=== PATIENT | female | born 1990 | race Caucasian/White ===

== ENCOUNTER → 2021-03-19 17:17 | Outpatient (CLI) | payer OTHER, SELFPAY ==
[2021-03-19 17:55] LABS: Appearance Urine UA CLEAR; Bilirubin Urine UA NEGATIVE (NEGATIVE); Color Urine UA YELLOW; Glucose Urine UA NEGATIVE (Negative); Ketones Urine UA NEGATIVE (NEGATIVE); Leukocyte Esterase Urine UA NEGATIVE (NEGATIVE); Nitrite Urine UA NEGATIVE (Negative); Occult Blood Urine UA 1+ (Negative); Protein Urine UA NEGATIVE (Negative); Specific Gravity Urine UA 1.015 (1.000-1.035); Urobilinogen Urine UA 0.2 E.U./dL (0.2)
[2021-03-19 18:02] LABS: Bacteria Urine None Seen; RBC Urine 0-1/HPF (0-5/HPF); Squamous Epithelial Cell Urine 0-1 /HPF (0-5/HPF); WBC Urine None Seen (0-5/HPF)
[2021-03-19 18:28] LABS: Add Manual Diff / Slide Review NO; Basophils Absolute Auto 0 /uL (0-100); Basophils Percent Auto 0.4 % (0-2); Eosinophils Absolute Auto 100 /uL (0-450); Eosinophils Percent Auto 1.3 % (2-4); Hematocrit 38.5 % (36-46); Hemoglobin 13.1 g/dL (12.0-16.0); Lymphocytes Absolute Auto 1600 /uL (1100-4500); Lymphocytes Percent Auto 17.3 % (25-40); Mean Corpuscular Hemoglobin 31.3 PG (26-34); Mean Corpuscular Volume 92.1 fL (80-100); Monocytes Absolute Auto 400 /uL (0-900); Monocytes Percent Auto 4.2 % (3-14); Neutrophils Absolute Auto 7100 /uL (1500-7000); Neutrophils Percent Auto 76.8 % (50-75); Platelet Count 261 X10^3/uL (150-400); Red Blood Cell Count 4.18 X10^6/uL (4.0-5.2); Red Cell Distribution Width 13.8 % (11.6-14.8); White Blood Cell Count 9.2 X10^3/uL (4.5-11.0)
[2021-03-20 08:09] LABS: RPR Screen Non Reactive (Non Reactive)
[2021-03-20 11:22] LABS: Varicella IgG Antibody 310 index (Immune >165)
[2021-03-20 17:04] LABS: Hepatitis B Surface Antigen NEGATIVE s/c (NEGATIVE); Rubella Antibody IgG 39.5 IU/mL (>15)
[2021-03-20 17:17] LABS: HIV 1 & 2 Ab/Ag 4th Gen Combo NEGATIVE (NEGATIVE); Hep C Virus Ab w/Reflex Quant NEGATIVE s/c (NEGATIVE)
== END ==
PROVIDERS: Referring Provider Specialist; Visit Provider Specialist
DX: Z34.81 Encounter for supervision of other normal pregnancy, first trimester (principal)
CPT/HCPCS: 36415; 80055; 81003; 81015; 86787; 86803; 86850; 86900; 86901; 87086; 87389

== ENCOUNTER → 2021-05-28 10:53 | Outpatient (CLI) | payer OTHER, SELFPAY ==
[2021-05-30 18:22] LABS: AFP, Serum 52.4 ng/mL (.); Inhibin A, Dimeric 138.05 pg/mL (.); Inhibin A, MoM 0.89 (.); Maternal Ethnicity Caucasian (.); Maternal Weight 166 lbs (.); Number of Fetuses No (.); OSBR Risk 1 IN 9231 (.); Results Report (.); Test Results *Screen Negative* (.); hCG, MoM 0.35 (.); hCG, Serum 8299 mIU/mL (.)
== END ==
PROVIDERS: Referring Provider Specialist; Visit Provider Specialist
DX: Z34.82 Encounter for supervision of other normal pregnancy, second trimester (principal); Z3A.19 19 weeks gestation of pregnancy
CPT/HCPCS: 82105; 82677; 84702; 86336

== ENCOUNTER → 2021-06-09 15:44 | Outpatient (CLI) | payer OTHER, SELFPAY ==
--- NOTE | 2021-06-09 15:45 | DI.US.S_ITS ---
PROCEDURE: US OB >= 14 WEEKS FETUS INDICATIONS: 20 WEEK ANATOMY OUTSIDE/PRIOR DATING DATA: Last menstrual period (LMP): 01/07/2021. LMP-based estimated date of delivery (CHICO): 10/22/2021 . First dating scan (date and location): 06/09/2021 . Estimated date of delivery (CHICO) from first dating scan: 09/28/2021 . TECHNIQUE: Real-time scanning was performed of the fetus, with image documentation and biometric measurements. Endovaginal scanning: No COMPARISON: [facility], , OB >= 14 WEEKS FETUS, 05/28/2021, 10:47. FINDINGS: General: A single living intrauterine gestation is present. Presentation: Variable. Placenta: Placental position is posterior , without previa. Amniotic fluid index: 14 cm, normal range is 5-24 cm. heart rate: 139 beats per minute. Maternal cervical canal: 4.6 cm long. Normal lower limit is 2.5 cm. biometrics: Biparietal diameter: 22 weeks Head circumference: 21 weeks 1 day Abdominal circumference: 20 weeks 5 days Femur length: 21 weeks 2 days Estimated gestational age from initial scan: not applicable. Composite gestational age from present scan: 21 weeks 2 days Estimated weight and percentile: 394 g Measurement variability for biometric dating: +/- 7 days from 14 weeks to 15 weeks 6 days gestation, +/- 10 days from 16 weeks to 21 weeks 6 days gestation, +/- 2 weeks from 22 weeks to 27 weeks 6 days gestation, +/- 3 weeks for 28 weeks gestation or later. weight reference: 4500 g or EFW >90/95% is considered macrosomia or large for gestational age. EFW <10% is small for gestational age. EFW 5% or less is considered intra-uterine growth restriction. Anatomic survey: Neuro: Ventricles are non-dilated at less than 10 mm. Cisterna magna is normal at 3-11 mm. Cerebellum is normal in size and morphology. Nuchal skin fold: Normal at less than 6 mm between 14-21 weeks gestational age. Face: Nose and lips, facial profile are normal. Spine: No evidence for spina bifida. Heart: 4-chambered heart is present, with normal ventricular outflow tracts. Diaphragm: Diaphragm is intact. Stomach: Left-sided stomach is present. Ill-defined echogenic focus present within the mid abdomen at the level of the stomach measuring 11 mm of unclear etiology. Kidneys: No hydronephrosis. Normal is less than 5 mm in 2nd trimester, less than 7 mm in 3rd trimester. Cord: 3-vessel cord has orthotopic insertion. Bladder: Normal in size. Extremities: All 4 extremities identified. IMPRESSION: 1. 21 week 2 day single living IUP corresponding to ultrasound CHICO of 10/18/2021. 2. Echogenic focus within the mid abdomen of unclear etiology; otherwise normal anatomic survey. Recommend short-term follow-up ultrasound in 2-3 weeks to assess for interval changes. Dictated by: Willian EDMONDSON Interpreted: Sierra Hartmann MD on 06/09/2021 at 17:01 Transcribed by: JORDAN on 06/09/2021 at 17:05 Approved by: Sierra Hartmann M.D. on 06/09/2021 at 18:03
== END ==
PROVIDERS: Referring Provider Specialist; Visit Provider Specialist
DX: Z34.82 Encounter for supervision of other normal pregnancy, second trimester (principal); Z3A.20 20 weeks gestation of pregnancy
CPT/HCPCS: 76811

== ENCOUNTER → 2021-06-25 15:42 | Outpatient (CLI) | payer OTHER, SELFPAY ==
[2021-07-01 16:29] LABS: CF Result Comment: (.)
== END ==
PROVIDERS: Referring Provider Specialist; Visit Provider Specialist
DX: Z34.82 Encounter for supervision of other normal pregnancy, second trimester (principal); Z3A.23 23 weeks gestation of pregnancy
CPT/HCPCS: 36415; 81223

== ENCOUNTER → 2021-07-12 10:12 | Outpatient (CLI) | payer OTHER, SELFPAY ==
[2021-07-12 11:52] LABS: Hematocrit 33.5 % (36-46); Hemoglobin 11.4 g/dL (12.0-16.0)
[2021-07-12 12:07] LABS: GTT (PREG) 1 Hour PP 50gm Dose 91 mg/dL (76-139)
[2021-07-13 11:08] LABS: HSV 2 IGG AB < 0.91 index (0.00-0.90); Toxoplasma gohndii IgG <3.0 IU/mL (0.0-7.1); Toxoplasma gondii IgM <3.0 AU/mL (0.0-7.9)
[2021-07-14 15:36] LABS: CMV DNA, Quant Real Time PCR Negative (Negative)
== END ==
PROVIDERS: Referring Provider Specialist; Visit Provider Specialist
DX: O35.9XX0 Maternal care for (suspected) fetal abnormality and damage, unspecified, not applicable or unspecified (principal); Z34.82 Encounter for supervision of other normal pregnancy, second trimester; Z3A.25 25 weeks gestation of pregnancy
CPT/HCPCS: 36415; 82950; 85014; 85018; 86695; 86696; 86777; 86778; 87497

== ENCOUNTER → 2021-10-02 10:31 | Outpatient (CLI) | payer OTHER, SELFPAY ==
[2021-10-03 10:37] LABS: Strep Grp B PCR NEG for Grp B Strep
== END ==
PROVIDERS: PCP Specialist; Referring Provider Specialist; Visit Provider Specialist
DX: Z34.83 Encounter for supervision of other normal pregnancy, third trimester (principal); Z3A.37 37 weeks gestation of pregnancy
CPT/HCPCS: 87653

== ENCOUNTER 2021-10-10 09:36 | Inpatient (IN) | payer OTHER, SELFPAY ==
--- NOTE | 2021-10-10 10:07 | P.HPOB_ITS ---
OB HPI Date/Time Date of admission: 10/10/21 Date Patient Seen: 10/10/21 Time Patient Seen: 10:08 History of Present Condition Chief complaint: OBSERVING PT, POSSIBLY IN LABOR : 2 Para: 1 Estimated Date of Delivery: 10/22/21 Estimated Gestational Age (weeks): 38 Narrative: Anna Samano is a 30 year old female admitted in active labor History of Present care: good care, initiated at week # (9), number of visits (11) and pounds weight gain (63) Dating criteria: LMP confirmed by 1st trimester US Ultrasounds: abnormal US findings Abnormal ultrasound findings: Echogenic focus in the liver seen by Maternal- Medicine recommend follow-up Obstetrical complications: none Medical complications: none Preadmission Labs Blood type: O (+) positive -: Antibody screen: negative, Cystic fibrosis screen: negative, GBS status: negative, HBsAG: negative, HIV: negative, HSV 1: positive, HSV 2: negative and RPR/VDLR: negative -: Chlamydia screen: not detected and Gonorrhea screen: not detected -: Rubella: immune and Varicella: immune HCAB: negative Quad screen: Normal 1 hr GTT: 91 Prior (ies) History: 03/08/2018 37 weeks 7 lb 10 oz male infant vaginal delivery Evaluation Evaluation Baseline heart rate: 140 Variability: Moderate (11-25) monitor accelerations: Present Monitor Decelerations: Absent Contraction Frequency (minutes): 5 Uterine Contraction Intensity: Strong/Firm Category of Tracing: Reactive Status: Category l Dilation (cm): 6 Effacement (%): 100 station: -2 [facility] Medical History (Updated 09/25/21 @ 10:23 by Nathan Valentino MD) Benign neoplasm of right ovary (~2016) Enlarged tonsils (~10/2019) PCOS (polycystic ovarian syndrome) (~2006) Surgical History (Updated 03/13/21 @ 10:22 by Alicia Samaniego RN) S/P right oophorectomy (~2016) [place] teeth extracted (~2008) Family History (Updated 03/13/21 @ 10:33 by Alicia Samaniego RN) Mother Severe anxiety Depression Father Hypertension Diabetes mellitus Hyperlipidemia Grandmother Oral cancer Smoker Grandfather Hx of leg amputation Grandmother Hyperlipidemia Hypertension Grandfather Unknown family medical history Social History marital status: number of children: 1 household members: spouse and children lives independently: Yes caregiver/support person: No housing: house ([facility] pets and animals: No education level: college (AA degree: Engineering, Civil.) occupational status: employed (Works at [employer]. ) current occupational exposures/hazards: No carly/jewish: [employer] special carly needs: Yes (Will request radiologic technology teacher if needed. ) seatbelt use: always working smoke detector in home: Yes fire extinguisher in home: No carbon monox detector in home: Yes firearms in home: No do you feel safe at home: Yes Smoking Status: Former smoker (Just socially before age 19, 1 pack per weekend. Quit at age 19. ) Tobacco: How many years used: 7 second hand exposure: No alcohol intake: former (Extremely rare: 1-2 drinks in last 5 years. ) substance use type: does not use during the past year weight has: decreased > 10 lbs (Lost 20 lbs, gained 10 lbs back.) well-balanced diet: daily or most days daily servings fruits/ve-4 caffeine: Yes (Soda - once in while.) Type(s) of exercise: walking, weight lifting (Used to lift weights last year, not currently. Discussed safe weight lifting/exercise in .) and normal ROM and activity (Works at daycare, very busy and active. ) frequency: daily Meds Home Medications and Allergies Home Medications Medication Instructions Recorded Confirmed Type prenat.vits,justice,[id number] 1 tab PO DAILY 03/13/21 10/09/21 History Allergies Allergy/AdvReac Type Severity Reaction Status Date / Time No Known Drug Allergies Allergy Verified 03/13/21 10:14 Review of Systems Review of Systems Narrative: Patient had loss of mucus plug last night then blood in the toilet when she urinated this a.m. and a small amount on her pad that now has just a brown discharge. Contractions began increasing in strength over the 2 hours. No leakage of fluid. No headaches, scotomata, epigastric pain. Good movement. OB Exam Narrative Exam Narrative: HEENT exam within normal limits. Lungs are clear to auscultation percussion. Heart is regular rate and rhythm no S3-S4 murmurs. Abdomen is gravid. Fetus is vertex. Extremities without edema and nontender. Very small amount of vaginal bleed. Assessment and Plan Assessment and Plan Assessment and Plan narrative: 38 week gestation in active labor. Patient requesting epidural catheter. Anticipate vaginal delivery.
[2021-10-10] MEDS: LACTATED RINGERS 1,000 ML 100 ML IV ×2 (10:28→11:47)
[2021-10-10 10:30] LABS: Add Manual Diff / Slide Review NO; Basophils Absolute Auto 100 /uL (0-100); Basophils Percent Auto 0.6 % (0-2); Eosinophils Absolute Auto 100 /uL (0-450); Eosinophils Percent Auto 0.7 % (2-4); Hematocrit 36.3 % (36-46); Hemoglobin 12.4 g/dL (12.0-16.0); Lymphocytes Absolute Auto 1300 /uL (1100-4500); Lymphocytes Percent Auto 13.4 % (25-40); Mean Corpuscular HGB Conc 34.2 % (30-36); Mean Corpuscular Hemoglobin 32.1 PG (26-34); Mean Corpuscular Volume 93.9 fL (80-100); Monocytes Absolute Auto 400 /uL (0-900); Monocytes Percent Auto 3.8 % (3-14); Neutrophils Absolute Auto 7700 /uL (1500-7000); Neutrophils Percent Auto 81.5 % (50-75); Platelet Count 202 X10^3/uL (150-400); Red Blood Cell Count 3.86 X10^6/uL (4.0-5.2); White Blood Cell Count 9.5 X10^3/uL (4.5-11.0)
[2021-10-10 11:13] LABS: COVID19 -Nasal RAPID Negative (Negative)
[2021-10-10 11:56] VITALS: BP 135/86
--- NOTE | 2021-10-10 16:31 | PM.OBPRVD ---
Labor & Delivery Delivery date: 10/10/21 Cervical ripening method: none Induction method: none Delivery monitor: external FHT and external uterine Route of delivery: L&D Laceration Description: Vaginal - 1st Degree Delivery repair: chromic (3 0 ) Estimated blood loss (mL): 100 Anesthesia Type: Epidural Narrative: Patient arrived on Labor and delivery in active labor. She received an epidural catheter for pain control. heart tones category 1 to category 2 throughout labor. She delivered spontaneously, over an intact perineum. The viable male infant was placed on the maternal abdomen. After the cord stopped pulsating the cord was clamped, cut, and cord bloods obtained. The placenta delivered spontaneously, intact, with 3 vessels. There were no cervical or perineal tears. A first-degree left vaginal tear was repaired with 3 0 chromic suture. Both mother doing well. Baby 1: Infant gender: Male Presentation: vertex Position: Right Occiput Anterior Placenta delivery description: Spontaneous Cord Vessel Description: 3 Vessels score (1 min): 9 score (5 min): 9 weight: 7 lb 9 oz Plan for aftercare: Routine care
[2021-10-10] MEDS: IBUPROFEN 600 MG TABLET PO (18:33)
[2021-10-11] MEDS: IBUPROFEN 600 MG TABLET PO (00:37)
[2021-10-11 07:17] LABS: Add Manual Diff / Slide Review NO; Basophils Absolute Auto 100 /uL (0-100); Basophils Percent Auto 0.5 % (0-2); Eosinophils Absolute Auto 100 /uL (0-450); Eosinophils Percent Auto 0.9 % (2-4); Hematocrit 31.8 % (36-46); Hemoglobin 10.8 g/dL (12.0-16.0); Lymphocytes Absolute Auto 1600 /uL (1100-4500); Lymphocytes Percent Auto 13.5 % (25-40); Mean Corpuscular HGB Conc 33.9 % (30-36); Mean Corpuscular Volume 94.5 fL (80-100); Monocytes Absolute Auto 600 /uL (0-900); Monocytes Percent Auto 4.7 % (3-14); Neutrophils Absolute Auto 9800 /uL (1500-7000); Neutrophils Percent Auto 80.4 % (50-75); Platelet Count 164 X10^3/uL (150-400); Red Blood Cell Count 3.36 X10^6/uL (4.0-5.2); White Blood Cell Count 12.2 X10^3/uL (4.5-11.0)
--- NOTE | 2021-10-11 09:31 | P.DS_ITS ---
Discharge Providers Provider Date of admission: 10/10/21 09:36 Discharge Date: 10/11/21 Primary care physician: Tejal Garcia MD Consults: 10/10/21 10:02 Consult to Anesthesiology Urgent Comment: Consulting Provider: Anesthesiologist Reason for consultation: Epidural Has provider been notified: No 10/11/21 16:29 Consult to Financial Sales Representative Routine Comment: Discharge provider: Tejal Garcia MD Summary Hospital Course Date Patient Seen: 10/11/21 Time Patient Seen: 09:31 Diagnoses: 38 week gestation, spontaneous vaginal delivery Hospital Course: Patient arrived in Labor and delivery in active labor. She received an epidural catheter for pain control. She had a spontaneous vaginal delivery with repair of a first-degree vaginal tear. She is urinating and ambulating well. Breast- feeding is going well. She denies headaches, scotomata, epigastric pain. Peripartum Data Infant Delivery Method: Natural Vaginal Laceration Description: Vaginal - 1st Degree Procedures: Epidural catheter, spontaneous vaginal delivery with repair of first-degree vaginal tear complications: none 1: Gender: Male Disposition of : home Discharge Diagnosis (1) Vaginal delivery: Status: Acute Status at Discharge Cognitive/behavioral status at discharge: oriented Functional status at discharge: independent ambulation Overall status at discharge: patient is progressing back to baseline Time Spent with Patient Time attestation: Total time spent providing and/or coordinating discharge services: Time spent: Less than 30 minutes Objective Labs Result Diagrams: 10/11/21 06:50 Labs: Laboratory Results - last 24 hr 10/10/21 10/10/21 10/10/21 10:15 10:15 10:15 WBC 9.5 RBC 3.86 L Hgb 12.4 Hct 36.3 MCV 93.9 MCH 32.1 MCHC 34.2 RDW 14.0 Plt Count 202 Neut % (Auto) 81.5 H Lymph % (Auto) 13.4 L [place] % (Auto) 3.8 Eos % (Auto) 0.7 L Baso % (Auto) 0.6 Neut # (Auto) 7700 H Lymph # (Auto) 1300 [place] # (Auto) 400 Eos # (Auto) 100 Baso # (Auto) 100 SARS-CoV-2 (PCR) Negative Blood Type O Positive Antibody Screen Negative 10/11/21 06:50 WBC 12.2 H RBC 3.36 L Hgb 10.8 L Hct 31.8 L MCV 94.5 MCH 32.0 MCHC 33.9 RDW 14.0 Plt Count 164 Neut % (Auto) 80.4 H Lymph % (Auto) 13.5 L [place] % (Auto) 4.7 Eos % (Auto) 0.9 L Baso % (Auto) 0.5 Neut # (Auto) 9800 H Lymph # (Auto) 1600 [place] # (Auto) 600 Eos # (Auto) 100 Baso # (Auto) 100 SARS-CoV-2 (PCR) Blood Type Antibody Screen Exam Vital Signs (past 8 hours): blood pressure 122/68, pulse of 86, temperature 98.1? Narrative Exam Narrative: Abdomen is soft, nontender. Uterus is firm, at U, nontender. Mild lochia. E xtremities without edema and nontender. Patient is O positive, rubella immune, received Tdap in the 3rd trimester. Discharge Plan Discharge Plan Patient Disposition: Home Provider Discharge Comment: patient plans on taking [id number] Motrin for pain Discharge orders & Medications Prescriptions: Continued prenat.vits,justice,[id number] Tablet 1 tab PO DAILY 0RF Follow up/Referrals: Tejal Garcia MD [Primary Care Provider] - (, Nov 13 @ 3pm w/ Dr. Garcia- appt) Diet/Activity/Treatments Diet: Regular Activity: nothing in vagina for 6 weeks Skin/Wound/Dressing Care Report to your healthcare provider any signs of infection, such as:: chills, fever Discharge Data Primary Care Provider: Tejal Garcia
== END 2021-10-11 13:30 | disposition home or self-care (01) | DRG 807 ==
PROVIDERS: Admitting Provider Specialist; PCP Specialist; Referring Provider Specialist; Visit Provider Specialist
DX: O98.52 Other viral diseases complicating childbirth (principal); Z37.0 Single live birth; B00.9 Herpesviral infection, unspecified; Z3A.38 38 weeks gestation of pregnancy; O70.0 First degree perineal laceration during delivery; Z20.822 Contact with and (suspected) exposure to COVID-19
CPT/HCPCS: 01967; 36415; 59050; 59400; 85025; 86850; 86900; 86901; 87635; C9803; G0379